=== PATIENT | female | born 1935 | race Caucasian/White ===

== ENCOUNTER 2017-03-10 18:14 | Inpatient (IN) | payer MEDICARE, BC ==
--- NOTE | ~2017-03-10 | DS ---
Discharge Summary [id number] [place]. [address] NAME: PAZ BRANHAM : 35 STATUS : DIS IN PAT#: [id number] AGE: 81 ADM/REG DATE : 03/10/17 MR#: [id number] REPORT SERV DATE: 03/18/17 DICTATED BY: RACHELE GALINDO DATE: 03/14/17 REPORT STATUS : Draft TRANSCRIBED BY: MATTHEW DATE: 03/14/17 ADMISSION DATE: 03/10/2017 DISCHARGE DATE: 03/14/2017 DIAGNOSES: 1. Acute colitis. 2. History of hepatitis C cirrhosis. 3. History of hepatocellular cancer being followed by Dr. Reuben Caba. 4. History of type 2 diabetes. 5. Nausea, vomiting resolved. 6. Questionable right lower lobe pulmonary nodule. CONSULTANTS: GI with Dr. Colby Lawson and nurse practitioner, Hansel Eisenberg. FOLLOWUP: The patient should follow up with Dr. Reuben Caba. The patient states she already has an appointment on 03/18/2017. The patient should follow up with Dr. Caba for history of hepatocellular cancer with elevated alpha fetoprotein level. Also the patient should follow up with GI physician, Dr. Rivera in two to three weeks and follow up with her primary care physician in one to two weeks. Also, the primary care will be required to repeat a CT of the chest in three months for right lung nodule. Also, recommend the patient to be referred to a mercerizer machine operator as well for followup. The patient should follow up with Dr. Reuben Caba for outpatient imaging of the liver. DISCHARGE MEDICATIONS: Amoxicillin 875 mg p.o. b.i.d. maintenance therapy, glargine 20 to 24 units subcutaneously in the morning per home dose, lactulose 15 mL p.o. b.i.d., Protonix 40 mg p.o. daily, Levaquin 750 mg p.o. every other day for four doses, 1 cap p.o. b.i.d., timolol ophthalmic drop b.i.d., Lasix 40 mg p.o. daily, to restart in three days, Flagyl 500 mg p.o. t.i.d. for seven days, Tylenol 500 mg p.o. daily p.r.n., Amaryl 2 mg p.o. b.i.d., Inderal 20 mg p.o. b.i.d., Mirapex 1 mg p.o. b.i.d. HOSPITALIST: 1. Dr. Blaise Cabrales. 2. Dr. Galindo. IMAGING: CT of the abdomen and pelvis without contrast showing a new 14 mm noncalcified pulmonary nodule in the right lower lobe. There is some micronodular heterogenous attenuation of the liver consistent with a past history of cirrhosis. In a large radiographic area, poorly circumscribed hypodensity in the right lobe of the liver, may represent a sequelae of underlying cirrhosis, although hepatic malignancy not excluded. Spleen, pancreas, adrenal glands, and kidneys are unremarkable. Status post cholecystectomy. There is [id number]-fb-[id number] ascites around the margin of the liver and spleen in both gutters. There is diffusely thickened cecum of ascending, transverse and to lesser extent descending colon and sigmoid colon. No pericolic abscesses identified. Recommend an outpatient hepatic CT or MRI of the liver for larger radiographic area of hypodensity. Discharge Summary [address] [place]. [address] NAME: PAZ BRANHAM : 35 STATUS : DIS IN PAT#: [id number] AGE: 81 ADM/REG DATE : 03/10/17 MR#: [id number] REPORT SERV DATE: 03/18/17 DICTATED BY: RACHELE GALINDO DATE: 03/14/17 REPORT STATUS : Draft TRANSCRIBED BY: MODL DATE: 03/14/17 Radiographic studies of the mesenteric ultrasound with a normal study. HOSPITAL COURSE: An 81-year-old female with a past medical history of cirrhosis and hepatocellular cancer treated by Dr. Reuben Caba and a history of type 2 diabetes presented with nausea and vomiting and abdominal discomfort with the diffuse cramping as well as subjective fever, chills, and some night sweats. The patient presented to [facility] ER, had a CT of the abdomen and pelvis as mentioned above with diffuse colitis. Also, the patient had new finding of a right lower lobe pulmonary nodule for which the patient and were explained. Will require followup with a repeat CT as an outpatient and recommend to follow up with the primary care physician. Also, the patient has the radiographic hypodensities of the liver that requires further followup by Dr. Reuben Caba with an elevated alpha-fetoprotein level on admission of 8000. GI Service contacted Dr. Reuben Caba who will follow up with the patient as an outpatient. The patient was continued on antibiotics empirically and also diet was slowly advanced as tolerated. The mesenteric ultrasound with nondiagnostic stool studies were negative including negative for C. diff. The patient clinically improved and was noted to be eating and drinking well without any abdominal pain at the time of discharge. It was explained to the patient and family once again the importance of following up for the pulmonary nodule as well as the liver findings. The patient states she already has an appointment with Dr. Reuben Caba on 03/18/2017 and will follow up. The patient was discharged to home. ADDENDUM DISCHARGE DIAGNOSES Suspected recurrence of hepatocellular carcinoma of the liver with suspected metastatic pulmonary nodule to the right lower lobe. Prior to the patient's discharge, the patient's CT scans were rediscussed with Dr. Reuben Caba by hospitalist concerning size of liver irregularity read on CAT scan. Dr. Reuben Caba recommended to have MRI with contrast prior to discharge and have the patient to follow up in his office. The MRI of the abdomen and pelvis revealed right lobe liver mass, measuring 4 x 2.6 x 1.9 cm, strongly suspicious for hepatocellular carcinoma and a 14-mm right lower lobe and additional right lower lobe 4 mm pulmonary nodule consistent with pulmonary metastatic disease. This was explained and read to Dr. Caba, who states he would like for the patient to follow up with him Thursday in his office and he will call the patient and family. He states that the patient recently had MRI as an outpatient that had better results and the patient also recently received treatment for hepatocellular carcinoma as an outpatient, however, with new findings, I wish to see the patient to discuss with the patient and family about further treatment options in his office. He states that it was discussed with the patient and prior to admission concerning referral to [facility] for treatment; however, the patient had refused at that time and opted for local treatment, however, he will rediscuss with the patient concerning [facility] or [facility] referral for treatment plan in his office and does not wish for Hematology/Oncology referral at this time until the patient is seen in his office for final treatment plans after discussion. The MRI finding was explained to the patient and family with the patient's permission, and she is aware of the liver mass as well as a high suspicion of metastatic disease to the lung and Discharge Summary [address] [place]. [address] NAME: PAZ BRANHAM : 35 STATUS : DIS IN PAT#: [id number] AGE: 81 ADM/REG DATE : 03/10/17 MR#: [id number] REPORT SERV DATE: 03/18/17 DICTATED BY: RACHELE GALINDO DATE: 03/14/17 REPORT STATUS : Draft TRANSCRIBED BY: MATTHEW DATE: 03/14/17 understands the importance of following up with Dr. Reuben Caba on Thursday, who will also contact the patient and family by phone prior to appointment. [facility]MATTHEW Rachele Galindo M.D. / [id number] / [id number] CC: Nany Abrams M.D. Munford Yates III, M.D.
--- NOTE | ~2017-03-10 | CN ---
Consultation Report [facility] [address] [place]. [address] NAME: PAZ LUGO : 35 STATUS : ADM IN PAT#: [id number] AGE: 81 ADM/REG DATE : 03/10/17 MR#: [id number] REPORT SERV DATE: 03/11/17 DICTATED BY: JACQUIE SINGLETON DATE: 03/11/17 REPORT STATUS : Draft TRANSCRIBED BY: MODL DATE: 03/11/17 GI CONSULTATION DATE OF CONSULTATION: 03/11/2017 REASON FOR CONSULTATION: Evaluation and management of acute colitis. HISTORY OF PRESENT ILLNESS: Ms. Lugo is a pleasant 81-year-old female patient, who is known to Dr. Rivera in the outpatient setting as well as being followed by Dr. Reuben Caba, adoption manager. She presents to [facility] on 03/10/2017 with a chief complaint of abdominal pain and nausea. The patient states that she has been experiencing some night sweats for the past month as well as since probably last 03/06/2017. She has had nausea. She has had abdominal discomfort. She has felt weak. She states that on Thursday she was [facility] to [facility] secondary to nausea and inability to eat. She complains of abdominal bloating which she felt was secondary to possibly accumulation of ascites; however, CT scan only shows that she has mild abdominal ascites. She had diarrhea for 24 hours. She states that since she has not had a bowel movement since coming in, but also she has not been able to eat or drink much. She has complained of some increasing lower extremity swelling, difficulty walking, malaise, no shortness of breath or chest pain, subjective fevers, night sweats. In regard to her diarrhea, she denies any melena or hematochezia. She states that intermittently she will see bright red blood on the toilet paper when wiping. Her emesis has been nonbloody. No coffee grounds. CT was done without contrast that showed diffuse colitis pattern, specifically that showed most prominent in the ascending colon and to a lesser extent, transverse, descending, and sigmoid colon. Also mild diverticulosis. No diverticulitis. Cirrhosis of the liver. Also a large radiographic area of hypodensity in the right lobe of the liver. She had a 14 mm noncalcified pulmonary nodule right lower lobe that does raise some suspicion for metastatic disease or possibly a primary pulmonary malignancy. She has not complained of any shortness of breath. Her last colonoscopy with Dr. Rivera was done in 05/2014. She had ascending colon polyps which were removed. She had diverticulosis throughout the entire colon and internal hemorrhoids. She does have a history of hepatocellular carcinoma. She is status post TACE procedure as well as RFA procedure x2. She had does carry a history of hepatitis C genotype 2B not amenable to treatment secondary to hepatocellular carcinoma. She last saw Dr. Reuben Caba in January of this year. She had an MRI of the abdomen with and without contrast on 02/19/2017 done at [facility] showing two devascularized hepatocellular carcinoma ablation scars, which were stable with no evidence of residual or recurrent hepatocellular carcinoma in the cirrhotic-appearing liver. They did check an alpha-fetoprotein here on admission, which was markedly elevated at 8124. I have discussed with Dr. Reuben Caba. He does not recommend other any further evaluation currently while in the hospital. He will see her in roughly one month and repeat MRI. I have discussed with the patient. We will hold on colonoscopy. She is unable to tolerate any prep. We will follow her and treat her medically. We will obtain stool studies and continue her IV antibiotics at this time. PAST MEDICAL HISTORY: Positive for hepatocellular carcinoma, status post TACE and RFA, Consultation Report [address] [place]. [address] NAME: PAZ LUGO : 35 STATUS : ADM IN PAT#: [id number] AGE: 81 ADM/REG DATE : 03/10/17 MR#: [id number] REPORT SERV DATE: 03/11/17 DICTATED BY: JACQUIE SINGLETON DATE: 03/11/17 REPORT STATUS : Draft TRANSCRIBED BY: MODL DATE: 03/11/17 hepatitis C, cirrhosis, hemochromatosis, type 2 diabetes, depression, anxiety, anemia of chronic disease, hepatic encephalopathy, osteomyelitis, mild abdominal ascites, varices, UTI, colon polyps, thrombocytopenia, diverticulosis, shingles, hiatal hernia, right knee sepsis, staph and strep, cellulitis, and glaucoma. PAST SURGICAL HISTORY: Includes skin cancer removals, appendectomy, cholecystectomy, hysterectomy, oophorectomy, small bowel surgery for obstruction, TACE procedure and RFA procedure of the liver, bilateral knee surgery, and lumbar spine surgery. SOCIAL HISTORY: She is . She still lives independently. Past history of tobacco as well as alcohol. FAMILY HISTORY: Multiple cancers in her family. ALLERGIES: LISTED TO LIDOCAINE, METAXALONE, EPINEPHRINE, RIBAVIRIN, MORPHINE, AND TRAMADOL. HOME MEDICATIONS: Tylenol, Lasix, Amaryl, Lantus, lactulose, Protonix, timolol, and amoxicillin. REVIEW OF SYSTEMS: A 10-point review of systems has been obtained with pertinent positives being addressed in the history of present illness. PHYSICAL EXAMINATION: VITAL SIGNS: Temperature 97.9, pulse 74, respirations 17, and blood pressure 125/70. NEUROLOGIC: Reveals an alert, elderly female, resting in bed. No focal deficits. GENERAL: Cooperative. She is in mild distress secondary to nausea and generalized abdominal discomfort. She has no signs of asterixis. She is awake, alert, and oriented x3. HEAD, EARS, EYES, NOSE, AND THROAT: Anicteric. Pupils are equal, round, and reactive to light and accommodation. Normocephalic and atraumatic. NECK: No JVD. No palpable nodes. LUNGS: Diminished throughout with normal respiratory effort exhibited. Equal expansion. CARDIOVASCULAR SYSTEM: Regular rate and rhythm. S1 and S2. No murmurs, rubs, gallops, S3, or S4 appreciated. ABDOMEN: Soft. Tender to palpation diffusely, but no rebound or guarding elicited on exam. She has hypoactive bowel sounds in all four quadrants. No appreciable ascites. EXTREMITIES: Mild lower extremity edema. SKIN: Warm, dry, and intact but pale. PERTINENT LABORATORY DATA: Sodium is 141, potassium 4.0, BUN is 17, creatinine 1.11. White count 3.4, hemoglobin is 9.4, hematocrit 27.2. Ammonia 62. Lipase 240. Total bilirubin 2.1, alkaline phosphatase 105, ALT 37, and AST 64. ASSESSMENT: 1. Acute diffuse colitis. Consultation Report [address] [place]. [address] NAME: PAZ LUGO : 35 STATUS : ADM IN [facility]#: [id number] AGE: 81 ADM/REG DATE : 03/10/17 MR#: [id number] REPORT SERV DATE: 03/11/17 DICTATED BY: JACQUIE SINGLETON DATE: 03/11/17 REPORT STATUS : Draft TRANSCRIBED BY: MATTHEW DATE: 03/11/17 2. Abdominal pain secondary to #1. 3. Nausea and vomiting. 4. Hepatitis C, not amenable to therapy with a history of hepatocellular carcinoma. 5. History of hepatocellular carcinoma, status post TACE/RFA treatment. 6. Questionable pulmonary nodule, seen on CT scan. PLAN: 1. We will check stool studies to rule out C. difficile. 2. Supportive care. 3. Schedule Zofran. 4. Hold on any colonoscopy. The patient is unable to prep. 5. We will check a mesenteric ultrasound. We will follow labs. FEL[facility]/MATTHEW [place] AMADOU Patel / [id number] CC: Nany Cornell M.D.
--- NOTE | ~2017-03-10 | HP ---
History And Physical [address] [place]. [address] NAME: PAZ BRANHAM : 35 STATUS : ADM IN [facility]#: [id number] AGE: 81 ADM/REG DATE : 03/10/17 MR#: [id number] REPORT SERV DATE: 03/11/17 DICTATED BY: CADENCE DIAS DATE: 03/11/17 REPORT STATUS : Draft TRANSCRIBED BY: MODL DATE: 03/11/17 DATE OF ADMISSION: 03/10/2017 CHIEF COMPLAINT: An 81-year-old female with underlying cirrhosis, now presenting with increasing abdominal pain and nausea. HISTORY OF PRESENT ILLNESS: The patient's history was obtained through careful interview with the patient and coupled with review of [facility] and [facility] medical records. The patient for about four days has had primarily nausea and vomiting. There has been no blood in her vomit. She did have some intermittent diarrhea as well, but it is completely resolved for about 24 hours. She describes new onset of abdominal pain, mid anterior abdomen as the location, a diffuse cramping quality, 8 to 10/10 severity. She describes bloating, what she believes is accumulation of ascites. She has complaints of increasing lower extremity edema recently and difficulty walking because of this. No shortness of breath. No chest pain. She has had subjective fevers and chills. She states over the last two nights "my pajamas have been sopping wet" with night sweats. REVIEW OF SYSTEMS: Otherwise 14-point review of systems was obtained and was negative. PAST MEDICAL HISTORY: 1. Hepatitis C cirrhosis with underlying hemochromatosis as well. 2. Diabetes. Hemoglobin A1c of 8.5, 12/2016. 3. Hepatocellular carcinoma, treated at [facility], under Dr. Kendall Caba. 4. Depression and anxiety. 5. Anemia. 6. Osteomyelitis. 7. Hepatic encephalopathy. 8. Ascites but has not had to have a paracentesis. 9. Varices. 10.Glaucoma. 11.Urinary tract infections. 12.Colon polyps. 13.Thrombocytopenia. 14.Shingles. 15.Hiatal hernia. 16.Right knee sepsis. 17.Staph and strep cellulitis. PAST SURGICAL HISTORY: History And Physical [address] [place] [address] NAME: PAZ BRANHAM : 35 STATUS : ADM IN PAT#: [id number] AGE: 81 ADM/REG DATE : 03/10/17 MR#: [id number] REPORT SERV DATE: 03/11/17 DICTATED BY: CADENCE DIAS DATE: 03/11/17 REPORT STATUS : Draft TRANSCRIBED BY: MATTHEW DATE: 03/11/17 1. Appendectomy. 2. Cholecystectomy. 3. Hysterectomy for apparent cancer. 4. Oophorectomy. 5. Small-bowel obstruction surgery. 6. Bilateral knee surgery. 7. Lumbar spine surgery. 8. Cervical spine surgery. 9. Multiple skin cancers removed. ALLERGIES: INTERFERONS, EPINEPHRINE, LIDOCAINE, MORPHINE, TRAMADOL, RIBAVIRIN, AND ZAROXOLYN. SOCIAL HISTORY: The patient quit smoking, quit alcohol more than 10 years ago. She has been to her for 59 years. Has four daughters one son. Many grandchildren. FAMILY HISTORY: Diabetes, heart disease, cancer, stroke, and daughter with amyloidosis. CURRENT MEDICATIONS: Include Tylenol, Lasix 40 mg p.o. daily, Amaryl 2 mg p.o. b.i.d., Lantus 20 to 24 units subcutaneous in the morning and at bedtime, Protonix 40 mg p.o. daily, lactulose 15 mL p.o. b.i.d., eye drops, and amoxicillin p.o. b.i.d. PHYSICAL EXAMINATION: VITAL SIGNS: Temperature 98.2, pulse 104, blood pressure 153/95, respiratory rate 16, and O2 saturation 98% on room air. GENERAL: A chronically ill-appearing female, in evidence of some distress secondary to abdominal pain and nausea. HEENT: Pupils equal, round, and reactive to light. No conjunctival pallor. No scleral icterus. Nares are patent. Oropharynx is clear of obstruction. Dry mucous membranes. NECK: Trachea midline. No thyromegaly. LYMPH: No cervical lymphadenopathy. No supraclavicular lymphadenopathy. No inguinal lymphadenopathy. RESPIRATORY: Clear to auscultation at bases. No wheezes, rales, or rhonchi. Normal respiratory effort. CARDIOVASCULAR: Tachycardic. Regular rhythm. No murmurs, rubs, or gallops. No current extremity edema is appreciated other than chronic changes, perhaps only minimal pitting around the ankles symmetrically. ABDOMEN: Seems chronically distended by my exam. No underlying fluid wave could be appreciated though is diffusely tender. No guarding or rebound. Nonfocal. No hepatosplenomegaly can be appreciated. DERMATOLOGICAL: Warm and dry. EXTREMITIES: No pallor. No cyanosis. PSYCHIATRIC: An anxious affect and mood. Alert and oriented x3. LABORATORY DATA: White blood cell count 5.3, hemoglobin 12, hematocrit 36, and platelets 85. Sodium 135, potassium 4.4, chloride 98, bicarb 27, BUN 18, creatinine 1.17, and glucose 208. Urinalysis shows 11 white blood cells, 8 hyaline casts, 23 epithelial cells. Albumin 2.5, History And Physical [id number] [place]. [address] NAME: PAZ BRANHAM : 35 STATUS : ADM IN [facility]#: [id number] AGE: 81 ADM/REG DATE : 03/10/17 MR#: [id number] REPORT SERV DATE: 03/11/17 DICTATED BY: CADENCE DIAS DATE: 03/11/17 REPORT STATUS : Draft TRANSCRIBED BY: MODL DATE: 03/11/17 lipase 418, total bilirubin 2.6. Alkaline phosphatase 150, ALT 46, and AST 88. STUDIES: CT scan of the abdomen shows diffuse colitis and liver disease/mass. ASSESSMENT AND PLAN: 1. Acute colitis. Place on IV fluids, IV albumin, and IV antibiotics. Consult Dr. Rivera, landfill attendant. 2. Hepatitis C cirrhosis with hemochromatosis. 3. Hepatocellular carcinoma, status post treatments at [facility], under the care of Dr. Kendall Caba. Check an alpha fetoprotein. 4. Diabetes. Hemoglobin A1c of 8.5 in 12/2016. Continue basal insulin and sliding scale insulin. 5. Acute kidney injury. Place on IV fluids, IV albumin. Hold Lasix. Provide supportive care. KPL/MODL Cadence Dias M.D. / [id number] CC: Nany Cornell M.D. Munford Yates III, M.D.
[2017-03-10 13:52] LABS: BASOPHILS 0.4 %; BASOPHILS ABSOLUTE 0.02 10/3/uL (0.0-0.16); EOSINOPHILS 1.9 %; ER CBC TAT 0 Hrs 13 Mins; HEMATOCRIT 35.9 % (36.0-48.0); HEMOGLOBIN 11.8 g/dL (12.0-16.0); IMMATURE GRANULOCYTES 0.4 %; IMMATURE GRANULOCYTES ABSOLUTE 0.02 10/3/uL (0.0-0.11); LYMPHOCYTES 15.9 %; LYMPHOCYTES ABSOLUTE 0.85 10/3/uL (0.67-4.30); MANUAL DIFF NO %; MEAN CORPUS HGB CONC 32.9 g/dL (32.0-36.0); MEAN CORPUSCULAR HEMOGLOB 31.1 pg (26.0-34.0); MEAN CORPUSCULAR VOLUME 94.5 fL (80-100); MEAN PLATELET VOLUME 9.8 fL (9.2-13.0); MONOCYTES 8.1 %; MONOCYTES ABSOLUTE 0.43 10/3/uL (0.21-1.20); NEUTROPHILS 73.3 %; NEUTROPHILS ABSOLUTE 3.92 10/3/uL (2.02-8.40); PLATELET COUNT 85 10/3/uL (150-400); RBC DISTRIBUTION WIDTH 16.6 % (12.0-16.0); WHITE BLOOD CELLS 5.3 10/3/uL (4.5-10.5)
[2017-03-10 13:58] LABS: ALBUMIN 2.5 G/DL (3.5-5.0); CHLORIDE, SERUM 98 MMOL/L (96-112); CO2 (CARBON DIOXIDE) 27 MMOL/L (24-34); CREATININE 1.17 MG/DL (0.55-1.02); GFR AFRICAN AMERICAN 51 ML/MIN (>=60); GFR NON AFRICAN AMERICAN 44 ML/MIN (>=60); GLUCOSE, SERUM 208 MG/DL (60-99); POTASSIUM, SERUM 4.4 MMOL/L (3.5-5.3); SGOT(AST) 88 U/L (5-40); SGPT(ALT) 46 U/L (5-65); SODIUM, SERUM 135 MMOL/L (135-148); TOTAL PROTEIN 8.8 G/DL (6.0-8.5)
[2017-03-10 13:59] LABS: A/G RATIO 0.4 (0.7-1.9); ALKALINE PHOSPHATASE 150 U/L (45-117); BUN (BLOOD UREA NITROGEN) 18 MG/DL (6-23); CALCIUM, SERUM 9.9 MG/DL (8.5-10.4); GLOBULIN 6.3 G/DL (2.5-4.1); TOTAL BILIRUBIN 2.6 MG/DL (0-1.2)
[2017-03-10 14:19] LABS: ASCORBIC ACID (UR NOT ORDER) NEG (NEG); BILIRUBIN, URINE NEGATIVE (NEG); ER URINALYSIS TAT 0 Hrs 12 Mins; KETONE, URINE NEGATIVE (NEG); LEUKOCYTE ESTERASE(NOT OR TRACE (NEG); NITRITE (URINE) NEG (NEG); WBC (NOT ORDERED) (RFLEX) 11 (0-5)
[~2017-03-10 18:14] MED LIST: ACIPHEX PO; AMARYL4 PO; AMOXIL500C PO; AMOXIL875 PO; AUG500 PO; AUG875 PO; BENTYL10 PO; COZ50 PO; COZAAR100 MG PO; CULTURELLE PROBIOTIC PO; DIGESTIVE PROBIOTIC PO; HCTZ25B PO; I40 PO; KLONO1 PO; LACT30UDL PO; LANTUS SC; LANTUSCART SC; LORTAB 5 PO; MICARDIS80 PO; MIRAPEX5 PO; NEO500 PO; NEUR300 PO; PCET PO; PRILOSEC40 MG PO; PROTONIX PO; ZOFRAN4 PO; [UNRECOGNIZED DRUG - OTHER] T
[2017-03-10] MEDS ORDERED: TIMOLOL MAL0.5 % OPH (21:04)
[2017-03-10] MEDS ORDERED: L40 PO (21:09)
[2017-03-10] MEDS ORDERED: AMARYL2 PO (21:09)
[2017-03-10] MEDS ORDERED: LANTUSCART SC ×2 (21:10→21:12)
[2017-03-10] MEDS ORDERED: CONSTULOSE PO (21:13)
[2017-03-10] MEDS ORDERED: PROTONIX PO (21:15)
[2017-03-10] MEDS ORDERED: AMOXIL875 MG PO (21:18)
[2017-03-10] MEDS ORDERED: ACET500CAP PO (21:18)
[2017-03-10] MEDS ORDERED: *UNABLE3 (21:20)
[2017-03-11 05:18] LABS: BASOPHILS 0.6 %; BASOPHILS ABSOLUTE 0.02 10/3/uL (0.0-0.16); EOSINOPHILS 3.2 %; EOSINOPHILS ABSOLUTE 0.11 10/3/uL (0.0-0.53); IMMATURE GRANULOCYTES 0.3 %; IMMATURE GRANULOCYTES ABSOLUTE 0.01 10/3/uL (0.0-0.11); LYMPHOCYTES 14.6 %; MEAN CORPUSCULAR HEMOGLOB 32.4 pg (26.0-34.0); MEAN CORPUSCULAR VOLUME 93.8 fL (80-100); MONOCYTES 13.1 %; MONOCYTES ABSOLUTE 0.45 10/3/uL (0.21-1.20); NEUTROPHILS 68.2 %; NEUTROPHILS ABSOLUTE 2.34 10/3/uL (2.02-8.40); PLATELET COUNT 74 10/3/uL (150-400); RBC DISTRIBUTION WIDTH 16.7 % (12.0-16.0); WHITE BLOOD CELLS 3.4 10/3/uL (4.5-10.5)
[2017-03-11 05:19] LABS: INTERNATIONAL NORMAL RATI 1.5 UNITS (-); PARTIAL THROMBO TIME 33.2 SEC (22.5-37.2); PROTIME (NOT ORD) 18.2 SEC (12.0-14.5)
[2017-03-11 05:30] LABS: B NATRIURETIC PEPTIDE (BNP) 40.5 PG/ML (< 100.0)
[2017-03-11 05:32] LABS: HEMATOCRIT 27.2 % (36.0-48.0); HEMOGLOBIN 9.4 g/dL (12.0-16.0); MEAN CORPUS HGB CONC 34.6 g/dL (32.0-36.0)
[2017-03-11 05:33] LABS: ALBUMIN 2.9 G/DL (3.5-5.0); ALPHA FETOPROTEIN (TUMOR) 8124.8 NG/ML (< 8.0); BUN (BLOOD UREA NITROGEN) 17 MG/DL (6-23); CHLORIDE, SERUM 106 MMOL/L (96-112); CO2 (CARBON DIOXIDE) 28 MMOL/L (24-34); CREATININE 1.11 MG/DL (0.55-1.02); FREE T4 1.24 NG/DL (0.76-1.46); GFR AFRICAN AMERICAN 54 ML/MIN (>=60); GFR NON AFRICAN AMERICAN 47 ML/MIN (>=60); MANUAL DIFF NO %; SGOT(AST) 64 U/L (5-40); SGPT(ALT) 37 U/L (5-65); SODIUM, SERUM 141 MMOL/L (135-148); TOTAL PROTEIN 7.7 G/DL (6.0-8.5)
[2017-03-11 05:34] LABS: A/G RATIO 0.6 (0.7-1.9); ALKALINE PHOSPHATASE 105 U/L (45-117); GLOBULIN 4.8 G/DL (2.5-4.1); GLUCOSE, SERUM 100 MG/DL (60-99); TOTAL BILIRUBIN 2.1 MG/DL (0-1.2)
[2017-03-11 06:22] LABS: PLATELET ESTIMATE DEC (ADEQUATE)
[2017-03-11 06:23] LABS: POLYCHROMASIA 1+ (2-5/OIF) (0-1/OIF)
[2017-03-11] MEDS ORDERED: I20 PO (10:00)
[2017-03-11] MEDS ORDERED: MIRAPEX1 MG PO (10:01)
[2017-03-12 05:26] LABS: BASOPHILS 0.4 %; BASOPHILS ABSOLUTE 0.01 10/3/uL (0.0-0.16); EOSINOPHILS 3.5 %; HEMATOCRIT 28.2 % (36.0-48.0); HEMOGLOBIN 9.3 g/dL (12.0-16.0); LYMPHOCYTES 16.5 %; LYMPHOCYTES ABSOLUTE 0.47 10/3/uL (0.67-4.30); MEAN CORPUSCULAR HEMOGLOB 31.8 pg (26.0-34.0); MEAN CORPUSCULAR VOLUME 96.6 fL (80-100); MEAN PLATELET VOLUME 8.7 fL (9.2-13.0); MONOCYTES 12.3 %; MONOCYTES ABSOLUTE 0.35 10/3/uL (0.21-1.20); NEUTROPHILS 67.3 %; NEUTROPHILS ABSOLUTE 1.91 10/3/uL (2.02-8.40); PLATELET COUNT 69 10/3/uL (150-400); RBC DISTRIBUTION WIDTH 16.6 % (12.0-16.0); RED CELL COUNT 2.92 10/6/uL (4.0-5.6); WHITE BLOOD CELLS 2.8 10/3/uL (4.5-10.5)
[2017-03-12 05:28] LABS: MANUAL DIFF NO %
[2017-03-12 05:39] LABS: INTERNATIONAL NORMAL RATI 1.5 UNITS (-); PROTIME (NOT ORD) 18.1 SEC (12.0-14.5)
[2017-03-12 05:52] LABS: PLATELET ESTIMATE DEC (ADEQUATE)
[2017-03-12 05:53] LABS: RBC MORPHOLOGY NORM (NORMAL)
[2017-03-12 06:19] LABS: ALBUMIN 2.7 G/DL (3.5-5.0); ALKALINE PHOSPHATASE 93 U/L (45-117); BUN (BLOOD UREA NITROGEN) 10 MG/DL (6-23); CALCIUM, SERUM 8.8 MG/DL (8.5-10.4); CHLORIDE, SERUM 106 MMOL/L (96-112); CO2 (CARBON DIOXIDE) 24 MMOL/L (24-34); CREATININE 0.95 MG/DL (0.55-1.02); DIRECT BILIRUBIN 0.6 MG/DL (0.0-0.4); GFR AFRICAN AMERICAN 65 ML/MIN (>=60); GFR NON AFRICAN AMERICAN 56 ML/MIN (>=60); GLUCOSE, SERUM 111 MG/DL (60-99); INDIRECT BILIRUBIN(NOT ORDER) 1.4 MG/DL (0.1-0.9); POTASSIUM, SERUM 4.1 MMOL/L (3.5-5.3); SGOT(AST) 59 U/L (5-40); SGPT(ALT) 32 U/L (5-65); SODIUM, SERUM 140 MMOL/L (135-148)
[2017-03-13 07:18] LABS: ALBUMIN 2.7 G/DL (3.5-5.0); DIRECT BILIRUBIN 0.7 MG/DL (0.0-0.4); INDIRECT BILIRUBIN(NOT ORDER) 0.8 MG/DL (0.1-0.9); TOTAL BILIRUBIN 1.5 MG/DL (0-1.2); TOTAL PROTEIN 7.2 G/DL (6.0-8.5)
[2017-03-14] MEDS ORDERED: LEVAQUIN750 MG PO (15:20)
[2017-03-14] MEDS ORDERED: FLAG500TAB PO (15:21)
[2017-03-14] MEDS ORDERED: FLORASTOR250 MG PO (15:22)
[2017-06-10] MEDS ORDERED: ULTRAM50 PO (08:10)
[2017-06-10] MEDS ORDERED: HUMALOG SC (08:12)
[2017-06-22] MEDS ORDERED: SPIRO50 PO (07:56)
== END 2017-03-14 16:48 | disposition home or self-care (01) | DRG 683 ==
LOC: ER 18:14 → 5SO 21:10
PROVIDERS: Emergency Medicine; Hospitalist; Nurse Practitioner Family
DX: N17.9 Acute kidney failure, unspecified (principal); C22.0 Liver cell carcinoma; K74.69 Other cirrhosis of liver; E11.9 Type 2 diabetes mellitus without complications; F32.9 Major depressive disorder, single episode, unspecified; K44.9 Diaphragmatic hernia without obstruction or gangrene; K52.9 Noninfective gastroenteritis and colitis, unspecified; B18.2 Chronic viral hepatitis C; E83.118 Other hemochromatosis; F41.9 Anxiety disorder, unspecified; Z87.891 Personal history of nicotine dependence; Z83.3 Family history of diabetes mellitus; Z82.49 Family history of ischemic heart disease and other diseases of the circulatory system; Z80.8 Family history of malignant neoplasm of other organs or systems; Z82.3 Family history of stroke; Z79.899 Other long term (current) drug therapy; Z79.4 Long term (current) use of insulin; Z90.49 Acquired absence of other specified parts of digestive tract; Z90.710 Acquired absence of both cervix and uterus; Z98.890 Other specified postprocedural states; Z88.5 Allergy status to narcotic agent; Z88.8 Allergy status to other drugs, medicaments and biological substances; Z88.1 Allergy status to other antibiotic agents; Z86.010 Personal history of colon polyps; Z87.440 Personal history of urinary (tract) infections
CPT/HCPCS: 71010; 72197; 74176; 74183; 80048; 80053; 80076; 81001; 82105; 82140; 82150; 82947; 82962; 83605; 83690; 83735; 83880; 84439; 85025; 85610; 85730; 87045; 87046; 87046-59; 87328; 87329; 87493; 87493-59; 87899; 87899-59; 89055; 93975; 96374; 99285; A9270-GY; A9581; J1170; J1956; J1980; J2405; P9047

== ENCOUNTER 2017-04-20 23:56 | Emergency (ER) | payer MEDICARE, BC ==
[2017-04-20 20:22] LABS: BASOPHILS 0.5 %; BASOPHILS ABSOLUTE 0.02 10/3/uL (0.0-0.16); EOSINOPHILS 2.2 %; EOSINOPHILS ABSOLUTE 0.09 10/3/uL (0.0-0.53); LYMPHOCYTES 18.7 %; LYMPHOCYTES ABSOLUTE 0.75 10/3/uL (0.67-4.30); MEAN CORPUS HGB CONC 34.3 g/dL (32.0-36.0); MEAN CORPUSCULAR HEMOGLOB 32.3 pg (26.0-34.0); MONOCYTES 14.2 %; MONOCYTES ABSOLUTE 0.57 10/3/uL (0.21-1.20); NEUTROPHILS 64.4 %; NEUTROPHILS ABSOLUTE 2.58 10/3/uL (2.02-8.40); RBC DISTRIBUTION WIDTH 16.2 % (12.0-16.0)
[2017-04-20 20:24] LABS: ER CBC TAT 0 Hrs 10 Mins; HEMATOCRIT 32.9 % (36.0-48.0); HEMOGLOBIN 11.3 g/dL (12.0-16.0); PLATELET COUNT 91 10/3/uL (150-400)
[2017-04-20 20:25] LABS: MANUAL DIFF NO %
[2017-04-20 20:29] LABS: ASCORBIC ACID (UR NOT ORDER) NEG (NEG); BILIRUBIN, URINE NEGATIVE (NEG); ER URINALYSIS TAT 0 Hrs 19 Mins; KETONE, URINE NEGATIVE (NEG); LEUKOCYTE ESTERASE(NOT OR TRACE (NEG); NITRITE (URINE) NEG (NEG); WBC (NOT ORDERED) (RFLEX) 9 (0-5)
[2017-04-20 20:34] LABS: A/G RATIO 0.5 (0.7-1.9); ALBUMIN 2.8 G/DL (3.5-5.0); CHLORIDE, SERUM 103 MMOL/L (96-112); CREATININE 1.24 MG/DL (0.55-1.02); GFR AFRICAN AMERICAN 47 ML/MIN (>=60); GFR NON AFRICAN AMERICAN 40 ML/MIN (>=60); GLOBULIN 5.6 G/DL (2.5-4.1); SGOT(AST) 112 U/L (5-40); SGPT(ALT) 42 U/L (5-65); SODIUM, SERUM 140 MMOL/L (135-148); TOTAL BILIRUBIN 1.6 MG/DL (0-1.2); TOTAL PROTEIN 8.4 G/DL (6.0-8.5)
[2017-04-20 20:35] LABS: ALKALINE PHOSPHATASE 166 U/L (45-117); BUN (BLOOD UREA NITROGEN) 20 MG/DL (6-23); CALCIUM, SERUM 9.8 MG/DL (8.5-10.4); CO2 (CARBON DIOXIDE) 32 MMOL/L (24-34); GLUCOSE, SERUM 151 MG/DL (60-99)
[~2017-04-20 23:56] MED LIST changes: +*UNABLE3; +ACET500CAP PO; +AMARYL2 PO; +AMOXIL875 MG PO; +CONSTULOSE PO; +FLAG500TAB PO; +FLORASTOR250 MG PO; +I20 PO; +L40 PO; +LEVAQUIN750 MG PO; +MIRAPEX1 MG PO; +TIMOLOL MAL0.5 % OPH
[2017-06-10] MEDS ORDERED: ULTRAM50 PO (08:10)
[2017-06-10] MEDS ORDERED: HUMALOG SC (08:12)
[2017-06-22] MEDS ORDERED: SPIRO50 PO (07:56)
== END 2017-04-21 00:34 | disposition home or self-care (01) ==
LOC: ER 23:56
PROVIDERS: Emergency Medicine
DX: K72.90 Hepatic failure, unspecified without coma (principal); E11.9 Type 2 diabetes mellitus without complications; F41.9 Anxiety disorder, unspecified; F32.9 Major depressive disorder, single episode, unspecified; Z87.891 Personal history of nicotine dependence; Z90.49 Acquired absence of other specified parts of digestive tract; Z90.710 Acquired absence of both cervix and uterus; Z98.890 Other specified postprocedural states; Z88.5 Allergy status to narcotic agent; Z88.8 Allergy status to other drugs, medicaments and biological substances; Z79.4 Long term (current) use of insulin; Z79.2 Long term (current) use of antibiotics; Z79.899 Other long term (current) drug therapy
CPT/HCPCS: 71010; 80053; 81001; 82140; 83690; 85025; 99285; A9270-GY

== ENCOUNTER 2017-05-15 20:09 | Emergency (ER) | payer MEDICARE, BC ==
[2017-05-15 17:37] LABS: BASOPHILS 1.2 %; BASOPHILS ABSOLUTE 0.06 10/3/uL (0.0-0.16); EOSINOPHILS 3.7 %; EOSINOPHILS ABSOLUTE 0.19 10/3/uL (0.0-0.53); ER CBC TAT 0 Hrs 09 Mins; HEMOGLOBIN 12.6 g/dL (12.0-16.0); IMMATURE GRANULOCYTES 0.4 %; IMMATURE GRANULOCYTES ABSOLUTE 0.02 10/3/uL (0.0-0.11); LYMPHOCYTES 13.8 %; LYMPHOCYTES ABSOLUTE 0.71 10/3/uL (0.67-4.30); MEAN CORPUS HGB CONC 33.8 g/dL (32.0-36.0); MEAN CORPUSCULAR HEMOGLOB 31.9 pg (26.0-34.0); MEAN CORPUSCULAR VOLUME 94.4 fL (80-100); MEAN PLATELET VOLUME 9.2 fL (9.2-13.0); MONOCYTES ABSOLUTE 0.41 10/3/uL (0.21-1.20); NEUTROPHILS 72.9 %; NEUTROPHILS ABSOLUTE 3.75 10/3/uL (2.02-8.40); PLATELET COUNT 97 10/3/uL (150-400); RBC DISTRIBUTION WIDTH 17.2 % (12.0-16.0); RED CELL COUNT 3.95 10/6/uL (4.0-5.6); WHITE BLOOD CELLS 5.1 10/3/uL (4.5-10.5)
[2017-05-15 17:38] LABS: HEMATOCRIT 37.3 % (36.0-48.0); MANUAL DIFF NO %
[2017-05-15 17:48] LABS: A/G RATIO 0.4 (0.7-1.9); ALBUMIN 2.5 G/DL (3.5-5.0); CALCIUM, SERUM 8.9 MG/DL (8.5-10.4); CHLORIDE, SERUM 101 MMOL/L (96-112); CREATININE 0.87 MG/DL (0.55-1.02); GFR AFRICAN AMERICAN 72 ML/MIN (>=60); GFR NON AFRICAN AMERICAN 62 ML/MIN (>=60); GLOBULIN 5.8 G/DL (2.5-4.1); GLUCOSE, SERUM 149 MG/DL (60-99); POTASSIUM, SERUM 4.5 MMOL/L (3.5-5.3); SGOT(AST) 180 U/L (5-40); SGPT(ALT) 54 U/L (5-65); SODIUM, SERUM 135 MMOL/L (135-148); TOTAL PROTEIN 8.3 G/DL (6.0-8.5); TROPONIN I <0.02 NG/ML (<0.05)
[2017-05-15 17:49] LABS: ALKALINE PHOSPHATASE 190 U/L (45-117); BUN (BLOOD UREA NITROGEN) 13 MG/DL (6-23); CO2 (CARBON DIOXIDE) 26 MMOL/L (24-34); TOTAL BILIRUBIN 4.3 MG/DL (0-1.2)
[2017-05-15 18:36] LABS: ASCORBIC ACID (UR NOT ORDER) NEG (NEG); BILIRUBIN, URINE NEGATIVE (NEG); ER URINALYSIS TAT 0 Hrs 26 Mins; KETONE, URINE NEGATIVE (NEG); LEUKOCYTE ESTERASE(NOT OR NEG (NEG); NITRITE (URINE) NEG (NEG); WBC (NOT ORDERED) (RFLEX) 4 (0-5)
[2017-06-10] MEDS ORDERED: ULTRAM50 PO (08:10)
[2017-06-10] MEDS ORDERED: HUMALOG SC (08:12)
[2017-06-22] MEDS ORDERED: SPIRO50 PO (07:56)
== END 2017-05-15 21:00 | disposition home or self-care (01) ==
LOC: ER 20:09
PROVIDERS: Hospitalist
DX: K72.90 Hepatic failure, unspecified without coma (principal); D69.6 Thrombocytopenia, unspecified; F32.9 Major depressive disorder, single episode, unspecified; F41.9 Anxiety disorder, unspecified; E11.9 Type 2 diabetes mellitus without complications; D64.9 Anemia, unspecified; Z86.19 Personal history of other infectious and parasitic diseases; Z87.891 Personal history of nicotine dependence; Z90.710 Acquired absence of both cervix and uterus; Z85.828 Personal history of other malignant neoplasm of skin; Z88.5 Allergy status to narcotic agent; Z88.8 Allergy status to other drugs, medicaments and biological substances; Z79.4 Long term (current) use of insulin; Z79.899 Other long term (current) drug therapy
CPT/HCPCS: 71020; 80053; 81001; 82140; 84484; 85025; 87040; 93005; 99285